=== PATIENT | female | born 1990 | race Caucasian/White ===

== ENCOUNTER 2018-02-02 19:17 | Emergency (ER) | payer SELFPAY ==
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
[2018-02-02] MEDS ORDERED: DIAZEPAM 2 MG TABLET ONE (20:20)
[2018-02-03 14:58] VITALS: BP 109/74; TEMP 98.4; O2SAT 98
== END 2018-02-02 20:26 | disposition home or self-care (01) ==
LOC: ER 19:17
DX: M54.5 Low back pain (principal); V43.62XA Car passenger injured in collision with other type car in traffic accident, initial encounter; F17.210 Nicotine dependence, cigarettes, uncomplicated
CPT/HCPCS: 99284